=== PATIENT | female | born 1970 | race Caucasian/White ===

== ENCOUNTER 2023-07-23 09:25 | Emergency (ER) | payer MEDICAID ==
[~2023-07-23] VITALS: Ht 158.8 cm; Wt 113.6 kg
[2023-07-23 09:27] VITALS: BP 163/106; PULSE 84; RESP 16; TEMP 98; O2SAT 94
== END 2023-07-23 10:38 | disposition home or self-care (01) ==
LOC: ER 09:25
DX: S01.01XA Laceration without foreign body of scalp, initial encounter (principal); W19.XXXA Unspecified fall, initial encounter; Y93.89 Activity, other specified; Y92.89 Other specified places as the place of occurrence of the external cause; Y99.8 Other external cause status
CPT/HCPCS: 12002; 99284; A6446; A6449